=== PATIENT | male | born 1990 | race Caucasian/White ===

== ENCOUNTER 2017-03-17 20:51 | Emergency (ER) | payer OTHER ==
[2017-03-17 20:57] VITALS: BP 141/85
[2017-03-17] MEDS ORDERED: BUFFERED LIDOCAINE 10 ML SYRINGE ONE (21:07)
--- NOTE | 2017-03-17 21:08 | ED Physician Documentation ---
PD HPI UPPER EXT INJURY - Stated complaint Stated Complaint: FINGER LAC - Chief complaint Chief Complaint: Ext Problem - History obtained from History obtained from: Patient - History of Present Illness Location: Right, Finger Type of injury: Laceration (sharp knife at home, utd on tetanus) Review of Systems Constitutional: reports: Reviewed and negative Ears: reports: Reviewed and negative Throat: reports: Reviewed and negative Cardiac: reports: Reviewed and negative PD PAST MEDICAL HISTORY - Present Medications Home Medications: Ambulatory Orders Medication Instructions Recorded Confirmed No Known Home Medications [No 03/17/17 03/17/17 Known Home Medications] - Allergies Allergies/Adverse Reactions: Allergies Allergy/AdvReac Type Severity Reaction Status Date / Time bee venom protein (honey bee) Allergy Hives Verified 03/17/17 20:57 PD ED PE NORMAL - Vitals Vital signs reviewed: Yes - General General: Alert and oriented X 3, No acute distress - Extremities Extremities: Other (1cm lac flexor surface DIP, good flexor function and nl sensation at TIP 3rd digit, v shallow lac at DIp flexor surface 4th digit, NVI) - Neuro Neuro: Alert and oriented X 3, Normal speech - Psych Psych: Normal mood, Normal affect Results - Vitals Vitals: Vital Signs - 24 hr 03/17/17 20:54 Temperature 35.9 C L Heart Rate 74 Respiratory 16 Rate Blood Pressure 141/85 H O2 Saturation 99 Oxygen O2 Source Room air Procedures - Laceration (location) R 4th finger Length in cm: 2 Wound type: Linear Neurovascular status: Sensory intact, Motor intact, Vascular intact Anesthesia: Lidocaine 1%, With bicarb (digital block) Wound Preparation: Irrigated copiously NS Skin layer closure: Nylon, Size #-0 - enter number (5-0), Sutures - enter # (3) Other: Tetanus UTD Complexity: Simple R 3rd finger Length in cm: 1 Wound type: Linear, Superficial, Into subcut fat. No: Into muscle Wound Preparation: Irrigated copiously NS Skin layer closure: Dermabond Other: Tetanus UTD Complexity: Simple Departure - Departure Disposition: 01 Home, Self Care Clinical Impression: Laceration of finger Qualifiers: Encounter type: initial encounter Finger: ring finger Damage to nail status: without damage Foreign body presence: without foreign body Laterality: right Qualified Code(s): S61.214A - Laceration without foreign body of right ring finger without damage to nail, initial encounter Laceration of middle finger Qualifiers: Encounter type: initial encounter Damage to nail status: without damage Foreign body presence: without foreign body Laterality: right Qualified Code(s) : S61.212A - Laceration without foreign body of right middle finger without damage to nail, initial encounter Condition: Good Record reviewed to determine appropriate education?: Yes Instructions: ED Lac Hand Poss Nerve Injy Sutr Gl Comments: Come back for any signs of infection which would include: Redness, swelling, drainage, increased pain, or fevers. Follow-up with your physician in 10-14 days for suture removal. Your blood pressure was elevated today on check into the emergency department. This does not mean that you have hypertension, it is a common phenomenon to come to the emergency department and have elevated blood pressure. I recommend that she see your primary care physician within the week to have it rechecked when you are feeling better.
== END 2017-03-17 21:37 | disposition home or self-care (01) ==
LOC: ED 20:51
DX: S61.214A Laceration without foreign body of right ring finger without damage to nail, initial encounter (principal); S61.212A Laceration without foreign body of right middle finger without damage to nail, initial encounter; W26.0XXA Contact with knife, initial encounter; Y92.009 Unspecified place in unspecified non-institutional (private) residence as the place of occurrence of the external cause; R03.0 Elevated blood-pressure reading, without diagnosis of hypertension
CPT/HCPCS: 12001; 99283

== ENCOUNTER 2017-05-14 08:21 | Outpatient (CLI) | payer OTHER ==
--- NOTE | 2017-05-14 17:00 | MRI Report ---
EXAM: RIGHT KNEE MRI WITHOUT CONTRAST EXAM DATE: 05/14/2017 09:08 AM. CLINICAL HISTORY: Chronic medial right knee pain for 3 years. COMPARISON: None. TECHNIQUE: Multiplanar, multisequence T1-weighted and fluid-sensitive sequences of the knee without c ontrast. Other: None. FINDINGS: Cruciate ligaments: The anterior and posterior cruciate ligaments appear intact. Medial meniscus: Horizontal tear centered at the body posterior horn junction extending to the tibial articular surface. Superior posteromedial meniscal cyst formation 1.4 x 0.8 x 2.5 cm. Lateral meniscus: Intact. No tear is identified. Collateral ligaments: The medial and fibular collateral ligaments appear intact. Bones and articular surfaces: Mild cartilage thinning at the periphery of the medial compartment. Mil d subchondral edema at the periphery of the medial tibial plateau. No additional significant articula r cartilage abnormality. Extensor mechanism: The patellar tendon and quadriceps insertion appear intact. IMPRESSION: 1. Horizontal tear centered at the body posterior horn junction of the medial meniscus. Associated me niscal cyst formation. 2. Minimal medial compartment osteoarthritis. [facility] MUSCULOSKELETAL RADIOLOGY SECTION Referring Provider Line: [phone] SITE ID: [id number]
== END 2017-05-14 08:22 | disposition home or self-care (01) ==
LOC: DI 08:21
PROVIDERS: ATTEND Nurse Practitioner Family
DX: S83.241A Other tear of medial meniscus, current injury, right knee, initial encounter (principal); M17.11 Unilateral primary osteoarthritis, right knee